=== PATIENT | male | born 1975 | race Caucasian/White ===

== ENCOUNTER 2020-04-26 08:37 | Emergency (ER) | payer OTHER ==
[~2020-04-26] VITALS: Ht 175.3 cm; Wt 112.5 kg
[2020-04-26] MEDS ORDERED: BACTRIM DS TAB1 EACH PO (09:27)
[2020-04-26] MEDS ORDERED: NORCO 5-325 TA1 EAC2 PO (09:27)
[2020-04-26 09:49] VITALS: BP 158/104
== END 2020-04-26 09:50 | disposition home or self-care (01) ==
LOC: M.ERS 08:37
DX: L02.811 Cutaneous abscess of head [any part, except face] (principal); R11.2 Nausea with vomiting, unspecified